=== PATIENT | female | born 1975 | race Caucasian/White ===

== ENCOUNTER 2019-01-13 10:07 | Emergency (ER) | payer BC ==
[~2019-01-13] VITALS: Ht 152.4 cm; Wt 113.4 kg
--- OUTSIDE RECORDS SUMMARY | 2019-01-13 10:09 | XMS REPORT | Continuity of Care Document ---
Author Author [facility] Interface Address Unknown Phone Unavailable Problems Problem Status Onset Date Classification Date Reported Comments Source SCREENING Active 07/18/2018 [facility] ROUTINE Active 07/31/2016 [facility] Medications Medication Details Route Status Patient Instructions Ordering Provider Order Date Source Allergies, Adverse Reactions, Alerts Substance Category Reaction Severity Reaction type Status Date Reported Comments Source Immunizations Immunization Date Given Site Status Last Updated Comments Source Results Order Name Results Value Reference Range Date Interpretation Comments Source Breast Mammo Scrn ILAN incl CAD MA Breast Mammo Scrn ILAN incl CAD MA BILATERAL DIGITAL SCREENING MAMMOGRAM WITH CAD: 08/05/2018 CLINICAL: /Sreen. Current study was evaluated with a Computer Aided Detection (CAD) system. COMPARISON:Comparison is made to exam dated: 08/13/2016 mammogram - [facility]. TECHNIQUE: Mammographic views were obtained using digital acquisition. [employer] Version 1.3 was utilized for computer aided detection. FINDINGS: There are scattered fibroglandular densities in both breasts. Patient complains of intermittent breast pain and/or tenderness. There is a benign calcification in the left breast. No significant masses, calcifications, or other findings are seen in either breast. There has been no significant interval change. IMPRESSION: BENIGN RECOMMENDATION:Clinical management of the patient's breast complaints is recommended. There is no mammographic evidence of malignancy. A 1 year screening mammogram is recommended.(08/06/2019) This exam was interpreted at [id number] for [facility]. Dean rueda/rosalio:08/07/2018 08:39:41 Profiling Machine Setup Operator(s): Nini Farfan, [facility] letter sent: BI-RADS 1/2 Mammogram BI-RADS: 2 Benign 08/05/2018 - - Read by: Dean Suggs MD Dictated Date/time: 08/07/18 08:39 Electronically Signed by: Dean Suggs MD 08/07/18 08:39 FINAL REPORT [facility] Digital Mammo Screening Ilan MA Digital Mammo Screening Ilan MA - DIGITAL MAMMO SCREENING ILAN MA BILATERAL FIRST EVER DIGITAL SCREENING MAMMOGRAM WITH CAD: 08/13/2016 CLINICAL: Routine. Current study was evaluated with a Computer Aided Detection (CAD) system. There are no comparison films available as this is the patient's baseline mammogram. There are scattered fibroglandular densities in both breasts. There is a benign appearing asymmetry in the left breast in the upper outer quadrant. No significant masses, calcifications, or other findings are seen in either breast. IMPRESSION: BENIGN There is no mammographic evidence of malignancy. A 1 year screening mammogram is recommended. Dean rueda/rosalio:08/13/2016 15:03:43 Profiling Machine Setup Operator: Verna Walker, [facility] This exam was dictated and interpreted by [id number] for [facility] [place]. letter sent: Normal exam Mammogram BI-RADS: 2 Benign 08/13/2016 - - Read by: Dean Suggs MD Dictated Date/time: 08/13/16 15:03 Electronically Signed by: Dean Suggs MD 08/13/16 15:03 FINAL REPORT [facility] Vital Signs Vital Sign Value Date Comments Source Encounters Location Location Details Encounter Type Encounter Number Reason For Visit Attending Provider ADM Date DC Date Status Source [facility] Outpatient [id number] Justine Waggoner 08/13/2016 08/14/2016 [facility] Procedures Procedure Code Date Perfomer Comments Source
--- OUTSIDE RECORDS SUMMARY | 2019-01-13 10:09 | XMS REPORT | Summary of Care ---
Author Author [facility] Organization [facility] Address Unknown Phone Unavailable Encounter HQ Encntr_jose carlos(FIN) [id number] Date(s): 08/13/16 - 08/13/16 [facility] [address] [place] [address]- Discharge Disposition: Home or Self Care Attending Physician: Justine Waggoner MD Referring Physician: Justine Waggoner MD Vital Signs No data available for this section Problem List No data available for this section Allergies, Adverse Reactions, Alerts No data available for this section Medications No data available for this section Results No data available for this section Immunizations No data available for this section Procedures No data available for this section Social History No data available for this section Assessment and Plan No data available for this section
[2019-01-13] MEDS ORDERED: LO LOESTRIN FE1 EACH (10:19)
[2019-01-13] MEDS ORDERED: SODIUM CHLORIDE 0.9% 1000ML 1,000 ML ONE (10:24)
[2019-01-13] MEDS ORDERED: SODIUM CHLORIDE 0.9% 1000ML 1,000 ML IV STA ×2 (10:24→12:15)
[2019-01-13] MEDS ORDERED: ONDANSETRON HCL INJ 2MG/ML 2ML 2 MG/ML VIAL ONE (10:24)
[2019-01-13] MEDS ORDERED: DIAZEPAM INJ 5 MG/ML 2 ML IV ONE (10:30)
[2019-01-13] MEDS: SODIUM CHLORIDE 0.9% 1000ML 1,000 ML IV ONE ×2 (10:44→12:17)
[2019-01-13] MEDS ORDERED: KETOROLAC TROMETHAMINE 30 MG/ML VIAL IV ONE (11:00)
[2019-01-13] MEDS ORDERED: ONDANSETRON HCL INJ 2MG/ML 2ML 2 MG/ML VIAL IV ONE ×2 (11:00)
[2019-01-13 11:07] LABS: BASOPHILS # (AUTO) 0.1 (0.0-0.1); BASOPHILS % 0.7 % (0.0-1.0); EOSINOPHILS # (AUTO) 0.1 (0.0-0.4); EOSINOPHILS % 1.4 % (0.0-6.0); HEMATOCRIT 40.2 % (34.2-44.1); HEMOGLOBIN 13.5 g/dL (12.0-16.0); LYMPHOCYTES # (AUTO) 3.5 (1.0-3.2); LYMPHOCYTES % 40.1 % (18.0-39.1); MEAN CORPUSCULAR HGB CONC 33.6 g/dL (31-35); MEAN CORPUSCULAR VOLUME 89.3 fL (81-99); MONOCYTES # (AUTO) 0.5 (0.2-0.8); MONOCYTES % 5.7 % (4.4-11.3); NEUTROPHILS # (AUTO) 4.5 (2.1-6.9); NEUTROPHILS % 51.8 % (38.7-80.0); PLATELET COUNT 285 x10e3/uL (140-360); RED CELL DISTRIBUTION WIDTH 13.3 % (11.7-14.4)
--- NOTE | 2019-01-13 11:18 | Diagnostic Imaging Report ---
EXAMINATION: CHEST SINGLE (PORTABLE) INDICATION: Stiff neck. ^ERMD ORDER ^[id number] ^1030 ^Y COMPARISON: None FINDINGS: AP view TUBES and LINES: None. LUNGS: Limited by body habitus and low lung volumes. No definite focal consolidation. PLEURA: No pleural effusion or pneumothorax. HEART AND MEDIASTINUM: The cardiomediastinal silhouette is unremarkable. BONES AND SOFT TISSUES: No acute osseous lesion. Soft tissues are unremarkable. UPPER ABDOMEN: No free air under the diaphragm. IMPRESSION: Limited as above. No definite focal consolidation. Signed by: Dr. Bang Henry MD on 01/13/2019 11:15 AM
[2019-01-13 11:21] LABS: CLARITY,URINE HAZY (CLEAR); COLOR,URINE YELLOW (YELLOW); LEUKOCYTE ESTERASE ,URINE NEGATIVE (NEGATIVE); NITRITE,URINE NEGATIVE (NEGATIVE)
[2019-01-13 11:22] LABS: BILIRUBIN,URINE NEGATIVE (NEGATIVE); KETONES,URINE NEGATIVE (NEGATIVE); PROTEIN,URINE DIPSTICK TRACE (NEGATIVE); URINE UROBILINOGEN 0.2 mg/dL (0.2 - 1)
[2019-01-13 11:22] LABS: ALANINE AMINOTRANSFERASE 14 IU/L (0-55); ALBUMIN 3.4 g/dL (3.5-5.0); ALBUMIN/GLOBULIN RATIO 0.9 (0.8-2.0); ALKALINE PHOSPHATASE 52 IU/L (40-150); ANION GAP 14.7 mmol/L (8-16); BLOOD UREA NITROGEN 10 mg/dL (7-26); BUN/CREATININE RATIO 13 (6-25); CALCIUM 8.2 mg/dL (8.4-10.2); CARBON DIOXIDE 20 mmol/L (22-29); CHLORIDE 107 mmol/L (98-107); CREATININE, SERUM 0.78 mg/dL (0.57-1.11); EST GLOMERULAR FILTRATION RATE > 60 ML/MIN (60-); GLUCOSE 128 mg/dL (74-118); POTASSIUM 3.7 mmol/L (3.5-5.1); SODIUM 138 mmol/L (136-145)
[2019-01-13 11:31] LABS: INFLUENZAE A&B ANTIGEN (RAPID) NEGATIVE (NEGATIVE); STREPTOCOCCUS GRP A ANTIGEN NEGATIVE (NEGATIVE)
[2019-01-13 11:41] LABS: PREGNANCY TEST, URINE NEGATIVE (NEGATIVE)
[2019-01-13 11:49] LABS: BACTERIA,URINE FEW /HPF; EPITHELIAL CELLS,URINE RARE /LPF; RBC,URINE >50 /HPF (0-5); WBC,URINE (MAN) 0-5 /HPF (0-5)
[2019-01-13] MEDS ORDERED: METOCLOPRAMIDE HCL 10 MG/2ML VIAL IV ONE (12:30)
[2019-01-13] MEDS ORDERED: DIPHENHYDRAMINE HCL INJ 50 MG/ML VIAL IV ONE (12:30)
[2019-01-13 14:11] VITALS: BP 114/66
== END 2019-01-13 14:45 | disposition home or self-care (01) ==
LOC: ER 10:07
DX: G43.019 Migraine without aura, intractable, without status migrainosus (principal); R42 Dizziness and giddiness
CPT/HCPCS: 36415; 71045; 80053; 81001; 81025; 83518; 85025; 87070; 87086; 87400; 93005; 99284; J1200; J1885; J2405; J2765; J7030

== ENCOUNTER → 2019-01-25 | Outpatient (CLI) | payer BC ==
[~2019-01-25] MED LIST: LO LOESTRIN FE1 EACH
--- NOTE | 2019-01-25 13:44 | Diagnostic Imaging Report ---
Examination: CT BRAIN WO CONTRAST History:Headache; history of migraines. Comparison studies:None Technique: Axial images were obtained from the skull base to the vertex. Coronal and sagittal images reconstructed from the axial data. Dose modulation, iterative reconstruction, and/or weight based adjustment of the mA/kV was utilized to reduce the radiation dose to as low as reasonably achievable. Intravenous contrast: None Findings: Scalp: No abnormalities. Bones: No fractures, blastic or lytic lesions. Brain sulci: Appropriate for age. Ventricles: Normal in size and configuration. No hydrocephalus. Extra-axial space: No abnormalities. Parenchyma: No abnormal densities. No masses, hemorrhage, or acute or chronic cortical based vascular insults.. Sellar/suprasellar region: Partially CSF filled. Craniocervical junction: Patent foramen magnum. No Chiari one malformation. Incidental findings: None. Impression: No intracranial abnormalities. Signed by: Dr. Mari Hartman M.D. on 01/25/2019 1:40 PM
== END ==
LOC: CT 12:40
PROVIDERS: ATTEND Psychiatry & Neurology Clinical Neurophysiology
DX: G44.52 New daily persistent headache (NDPH) (principal)
CPT/HCPCS: 70450